=== PATIENT | male | born 1990 | race Caucasian/White ===

== ENCOUNTER 2020-09-21 10:57 | Outpatient (CLI) | payer BC ==
[2020-09-21 11:20] LABS: Hematocrit 43.3 % (35.5-45.6); Hemoglobin 14.5 gm/dl (11.8-15.2); Mean Corpuscular HGB Conc 34 % (32-34); Mean Corpuscular Volume 89 fl (84-94); Platelet Count 201 K/mm3 (140-440); Red Blood Count 4.88 M/mm3 (3.65-5.03)
[2020-09-21 11:44] LABS: Alanine Aminotransferase 19 units/L (7-56); Albumin 4.9 g/dL (3.9-5); BUN/Creatinine Ratio 12; Blood Urea Nitrogen 12 mg/dL (9-20); Calcium 9.8 mg/dL (8.4-10.2); Chol/HDL Ratio 2.58 %; HDL Cholesterol 60 mg/dL (40-59); Hemolysis Index 7; LDL Cholesterol,Direct 86 mg/dL (50-130)
[2020-09-26 11:15] LABS: Vitamin D, 25-OH, D2 <4 ng/mL
[2020-09-28 06:57] LABS: HIV-1 Antibody Differentiation SEE SCANNED RESULT; HIV-2 Antibody Differentiation SEE SCANNED RESULT
== END 2020-09-21 10:58 | disposition home or self-care (01) ==
LOC: LAB 10:57
PROVIDERS: ATTEND Internal Medicine
DX: Z11.4 Encounter for screening for human immunodeficiency virus [HIV] (principal); R53.83 Other fatigue; E78.2 Mixed hyperlipidemia; R73.09 Other abnormal glucose; A53.9 Syphilis, unspecified
CPT/HCPCS: 36415; 80053; 80061; 82306; 83036; 84443; 85027; 86592; 86689